=== PATIENT | male | born 1985 | race Two or more races ===

== ENCOUNTER 2024-07-25 13:46 | Observation (INO) | payer MEDICAID, SELFPAY ==
[2024-07-25] VITALS (10 sets, daily range): BP systolic 133–159; BP diastolic 90–109; PULSE 112–128; RESP 14–32; TEMP 36.6–38.1; O2SAT 95–99; BMI 30.7
--- NOTE | 2024-07-25 14:27 | EDNOTE_ITS ---
ED Psych RME/HPI General Chief Complaint: Psychiatric Symptoms Stated Complaint: PSYCHIATRIC ISSUES Time Seen by Provider: 07/25/24 14:04 Arrival date/time: 07/25/24 13:46 RME / HPI RME / HPI Narrative: Patient is a 38 year old male presenting to the ED BIBA and PPD on a gravely disabled hold. Patient was found standing in front of a store with no pants on, was not verbal at that time. Patient in ED is being nonverbal, does not make eye contact. Per EMS, patients mother reported a history of Bipolar and schizophrenia, states he hasn't slept in tow days and does become manic when he doesn't sleep well. Further history includes diabetes and hypertension. Related Data Previous Rx's ?Medication ?Instructions ?Recorded metformin 750 mg tablet,extended 750 mg PO QDAY 30 days #0 tabs 07/27/24 release 24 hr quetiapine 25 mg tablet 25 mg PO BID 30 days #60 tabs 07/27/24 Allergies Allergy/AdvReac Type Severity Reaction Status Date / Time No Known Allergies Allergy Verified 07/25/24 14:25 Review of Systems Review of Systems ROS Unobtainable: unobtainable due to mental status Past Medical History Past Medical History CARDIAC: Positive Cardiac Disorders, Angina, Hypercholesterolemia and Hyper tension GASTROINTESTINAL: Positive Gastrointestinal Disorders and Obesity ENDOCRINE: Positive Endocrine Disorders and Diabetes Mellitus Type 2 PSYCHO/SOCIAL: Positive Psychiatric Problems (PSYCHOSIS) and Bipolar Disorder Family History FAMILY HISTORY: Negative Family Psychiatric Problems, Family Respiratory Disorders, Family Cardiac Disorders, Family Gastrointestinal Problems, Family Cancer, Family Surgery or Family Anesthesia Reaction Surgical History SURGICAL: Positive Open Reduction Internal Fixation Social History SMOKING STATUS: Unknown if ever smoked SECOND HAND EXPOSURE: Yes SUBSTANCE USE: does not use ED Exam Narrative Physical exam: GEN. APPEARANCE: The patient is alert awake oriented X-3 in minimal distress, lying down, diaphoretic,? Patient has no eye contact during exam. lying in bed staring at ceiling with clenched fists and not answering questions. VITALS:? All vitals were reviewed and the pulse ox is 97% on room air which is normal according to my interpretation. EXTREMITIES: Nontender.? No edema.? No cyanosis.? Patient is able to move all 4 extremities well, with full ROM and good CSM. SKIN: diaphoretic MUSCULOSKELETAL: hyperreflexia, hypertonicity. No lubar or midline bony tenderness.? There is no CVA tenderness.? No paraspinal muscle spasm or tenderness. NEURO: Patient is not answering questions or making eye contact. PSYCHIATRIC: Patient does not make eye contact, does not talk or answer questions. Course Quality Measures none Orders Category Date Time Status 1799 Psychiatric Hold NOW Care 07/25/24 14:30 Ordered COVID-19 Screening Questionnaire NOW Care 07/25/24 20:12 Completed Tax Services Professional STAT Care 07/25/24 17:58 Completed Continuous Pulse Oximetry STAT Care 07/25/24 17:58 Completed Decision to Admit X1 Care 07/25/24 20:12 Completed EKG (ED ONLY) *Do not use* NOW Care 07/25/24 17:58 Completed In and Out Catheter X1PRN Care 07/25/24 17:58 Completed Insert IV NOW Care 07/25/24 17:58 Completed NPO STAT Care 07/25/24 17:58 Completed Strict Intake and Output Routine Care 07/25/24 17:[address] head/brain wo con Stat Exams 07/25/24 19:02 Completed EKG (ED Only) Stat Exams 07/25/24 17:58 Draft XR chest 1V portable Stat Exams 07/25/24 18:01 Completed Acetaminophen Stat Lab 07/25/24 15:00 Completed Alcohol, Blood Medical Stat Lab 07/25/24 15:00 Completed B-Type Natriuretic Peptide Stat Lab 07/25/24 18:00 Completed Basic Metabolic Panel Stat Lab 07/25/24 15:00 Completed Blood Culture (Lab) Stat Lab 07/25/24 18:31 Completed CBC Stat Lab 07/25/24 15:00 Completed CK [Creatine Kinase] Stat Lab 07/25/24 18:29 Completed Drug Screen,Urine Stat Lab 07/25/24 17:43 Completed LDH (Lactate Dehydrogenase) Stat Lab 07/25/24 18:29 Completed Lactate (Lactic Acid) Stat Lab 07/25/24 18:29 Completed Lipase Stat Lab 07/25/24 18:29 Completed Magnesium Stat Lab 07/25/24 18:29 Completed Partial Thromboplastin Time Stat Lab 07/25/24 15:00 Completed Phosphorous Stat Lab 07/25/24 18:29 Completed Procalcitonin Stat Lab 07/25/24 18:29 Completed Prothrombin Time with INR Stat Lab 07/25/24 15:00 Completed Salicylate Stat Lab 07/25/24 15:00 Completed Troponin I Stat Lab 07/25/24 18:29 Completed Urinalysis Stat Lab 07/25/24 17:43 Completed Urine Culture Stat Lab 07/27/24 00:22 Completed Diazepam Inj [Valium Inj] Med 07/25/24 17:53 Discontinued 10 mg IVP X1 ONE LORazepam [Ativan Inj] Med 07/25/24 18:14 Discontinued 2 mg IVP X1 ONE Magnesium Sulfate 2 GM Ivpb [Magnesium Sulfate Ivpb] Med 07/25/24 20:27 Discontinued 2 gm in 50 ml IV X1 Sodium Chloride 0.9% 1000 ml [Ns] 1,845 ml Med 07/25/24 17:57 Discontinued IV 1,845 mls/hr Vital Signs Vital signs: Vital Signs Temperature 98.3 F 07/25/24 14:05 Pulse Rate 128 H 07/25/24 14:05 Respiratory Rate 20 07/25/24 14:05 Blood Pressure 148/108 H 07/25/24 14:05 Pulse Oximetry (%) 97 07/25/24 14:05 Oxygen Delivery Method Room Air 07/25/24 14:05 Psych MDM Narrative MDM Narrative:: 1555 Sepsis alert initiated. Orders made at this time are congruent with ED Adult Sepsis Order List. Re-evaluation is to be completed. Patient data External records reviewed:: [facility] previous records and EMS form Clinical information provided by:: EMS Social determinants that could affect healthcare access:: mental health Patient has the following chronic illnesses:: Bipolar, schizophrenic, diabetes, hypertension How is presenting disease/condition affected by chronic disease/condition?: caused by Evaluation data The following diagnostics were reviewed and interpreted by me:: lab results and EKG tracing(s) ( Sinus Tach, rate 143, normal axis, no ectopy, no signs of acute acute ischemia) Lab and/or radiology exams considered but not ordered:: none Interpretation Summary: see above Medications / Prescriptions Medications or Prescriptions considered but not ordered:: none Medication administrations:: Medication Administration History Discontinued Medications Acetaminophen (Acetaminophen 325 Mg Tablet) 650 mg PO Q6H PRN PRN Reason: Fever >101.5 Stop: 08/24/24 20:57 Dextrose (Dextrose 50%-Water Inj 50 Ml Syringe) 25 ml IV Q15MIN PRN PRN Reason: BG 50-70 responsive npo pt Stop: 08/25/24 11:02 Dextrose (Dextrose 50%-Water Inj 50 Ml Syringe) 50 ml IV Q15MIN PRN PRN Reason: BG <50 OR BG <70 & pt unresponsive Stop: 08/25/24 11:02 Diazepam (Diazepam Inj 5 Mg/Ml Vial 2 Ml) 10 mg IVP X1 ONE Stop: 07/25/24 17:54 Last Admin: 07/25/24 18:10 Dose: 10 mg Documented By: EF Enoxaparin Sodium (Enoxaparin Sod Inj 40 Mg/0.4 Ml Syringe) 40 mg SC QDAY SILVERIO Stop: 08/09/24 08:59 Last Admin: 07/27/24 09:42 Dose: 40 mg Documented By: Admin: 07/26/24 08:54 Dose: 40 mg Documented By: MGD Folic Acid (Folic Acid 1 Mg Tablet) 1 mg PO BID SILVERIO Stop: 07/31/24 08:59 Last Admin: 07/27/24 09:42 Dose: 1 mg Documented By: Admin: 07/26/24 20:38 Dose: 1 mg Documented By: Admin: 07/26/24 08:53 Dose: 1 mg Documented By: MGD Glucagon (Glucagon Inj 1 Mg Vial) 1 mg IM Q15MIN PRN PRN Reason: BG <70, and no IV access Sodium Chloride (Ns) 1,845 mls @ 1,845 mls/hr 30 ml/kg infuse over 60 min (1845 ml) IV .Q1H ONE Stop: 07/25/24 18:56 Last Infusion: 07/25/24 19:48 Dose: Infused Documented By: Admin: 07/25/24 18:37 Dose: 1,845 mls/hr Documented By: EF Magnesium Sulfate (Magnesium Sulfate Ivpb) 2 gm in 50 mls @ 25 mls/hr IV X1 ONE Stop: 07/25/24 22:26 Last Infusion: 07/25/24 23:34 Dose: Infused Documented By: Admin: 07/25/24 21:19 Dose: 25 mls/hr Documented By: EE Sodium Chloride (Ns) 1,000 mls @ 75 mls/hr IV .[id number] SILVERIO Stop: 07/26/24 10:19 Last Infusion: 07/26/24 20:00 Dose: Infused Documented By: Admin: 07/25/24 21:21 Dose: 75 mls/hr Documented By: EE Potassium Chloride (Kcl Ivpb) 10 meq in 100 mls @ 100 mls/hr IV Q1H SILVERIO Stop: 07/26/24 11:56 Last Infusion: 07/26/24 20:00 Dose: Infused Documented By: Admin: 07/26/24 13:02 Dose: 100 mls/hr Documented By: Infusion: 07/26/24 13:02 Dose: Infused Documented By: Admin: 07/26/24 12:03 Dose: 100 mls/hr Documented By: Infusion: 07/26/24 10:56 Dose: Infused Documented By: Infusion: 07/26/24 10:55 Dose: 100 mls/hr Documented By: Admin: 07/26/24 09:56 Dose: 100 mls/hr Documented By: Infusion: 07/26/24 09:54 Dose: Infused Documented By: Admin: 07/26/24 08:54 Dose: 100 mls/hr Documented By: MGD Insulin Human Lispro (Insulin Lispro (Admelog) 1 Unit/0.01 Ml Unit) 0 unit SC ACHS SILVERIO; Protocol Stop: 08/25/24 11:29 Last Admin: 07/27/24 11:39 Dose: Not Given Documented By: BV Non-Admin Reason: Per Protocol Admin: 07/27/24 07:13 Dose: Not Given Documented By: BV Non-Admin Reason: Per Protocol Admin: 07/26/24 20:38 Dose: Not Given Documented By: WO Non-Admin Reason: Per Protocol Admin: 07/26/24 17:18 Dose: Not Given Documented By: MGD Non-Admin Reason: Per Protocol Admin: 07/26/24 12:30 Dose: Not Given Documented By: MGD Non-Admin Reason: Per Protocol Lorazepam (Lorazepam 2 Mg/Ml Vial) 2 mg IVP X1 ONE Stop: 07/25/24 18:15 Last Admin: 07/25/24 18:50 Dose: Not Given Documented By: EF Non-Admin Reason: Cancelled by Provider Lorazepam (Lorazepam 2 Mg/Ml Vial) 2 mg IVP X1 ONE Stop: 07/25/24 23:07 Last Admin: 07/25/24 23:35 Dose: 2 mg Documented By: EE Lorazepam (Lorazepam 0.5 Mg Tablet) 0.5 mg PO Q4HR PRN PRN Reason: CIWA Score 2-6 Stop: 07/31/24 07:49 Lorazepam (Lorazepam 0.5 Mg Tablet) 1 mg PO Q4HR PRN PRN Reason: CIWA SCORE 7-11 Stop: 07/31/24 07:49 Lorazepam (Lorazepam 0.5 Mg Tablet) 2 mg PO Q4HR PRN PRN Reason: CIWA SCORE 12-15 Stop: 07/31/24 07:49 Lorazepam (Lorazepam 2 Mg/Ml Vial) 1 mg IV Q2HR PRN PRN Reason: CIWA SCORE 16-19 Stop: 07/31/24 07:49 Lorazepam (Lorazepam 2 Mg/Ml Vial) 2 mg IV Q2HR PRN PRN Reason: CIWA SCORE 20-25 Stop: 07/31/24 07:49 Lorazepam (Lorazepam 2 Mg/Ml Vial) 2 mg IVP X1 PRN PRN Reason: Breakthrough Agitation Potassium Chloride (Potassium Chloride 20 Meq Tabcr) 20 meq PO X1 ONE Stop: 07/27/24 07:25 Last Admin: 07/27/24 09:42 Dose: 20 meq Documented By: ZOHAIB Quetiapine Fumarate (Quetiapine Fumarate 25 Mg Tablet) 25 mg PO HS SILVERIO Stop: 08/25/24 20:59 Last Admin: 07/26/24 20:38 Dose: 25 mg Documented By: WO Quetiapine Fumarate (Quetiapine Fumarate 25 Mg Tablet) 25 mg PO BID SILVERIO Stop: 08/26/24 08:59 Last Admin: 07/27/24 09:42 Dose: 25 mg Documented By: ZOHAIB Thiamine HCl (Thiamine Inj 100 Mg/Ml Vial 2 Ml) 100 mg IM X1 ONE Stop: 07/26/24 08:16 Last Admin: 07/26/24 09:56 Dose: 100 mg Documented By: MGVilma none Consultations Consultation(s) initiated? (list below): No Diagnosis Psych Differential Diagnosis: other (acute psychosis, catatonia, cocaine intoxication, methamphetamine intoxication ) Most likely diagnosis given after review of the tests above:: acute psychosis. Admission Indicated Admission indicated?: not indicated Admission Request Was there a request for admission?: No Disposition Plan Disposition Plan: other (specify) (signed out to next provider pending evaluation) Critical Care Time Critical Care Time Total Critical Care Time (min.): 45 Attestation: The high probability of sudden, clinically significant deterioration in the patient?s condition required the highest level of my preparedness to intervene urgently. ? The services I provided to this patient were to treat and/or prevent clinically significant deterioration. Services included the following: chart data review, reviewing nursing notes and/or old charts, documentation time, mgmt consultant collaboration regarding findings and treatment options, medication orders and management, direct patient care, vital sign assessments and ordering, interpreting and reviewing diagnostic studies and lab tests. ? Aggregate critical care time includes only time during which I was engaged in work directly related to the patient?s care, as described above, whether at bedside or elsewhere in the Emergency Department. It did not include time spent performing other reported procedures or the services of residents, students, nurses or physician assistants. Discharge Plan Plan Patient Disposition: Other Care w/in Hosp (SDC/RUMA) Problem List Clinical Impression: Acute psychosis
--- NOTE | 2024-07-25 14:34 | PC.NURSE ---
UNABLE TO DO COLUMBIA SCALE DUE TO PT NOT WANTING TO ANSWER QUESTIONS
[2024-07-25 15:12] LABS: Basophils # (Auto) 0.1 Thou/mm3 (0.0-0.2); Basophils % (Auto) 1 % (0-2.5); Eosinophils # (Auto) 0.1 Thou/mm3 (0.0-0.5); Eosinophils % (Auto) 0 % (0-10); Hemoglobin 16.7 g/dL (13.5-16.0); Immature Granulocytes % (Auto) 0 % (0-0); Immature Granulocytes Auto 0.05 Thou/mm3 (0.00-0.00); Lymphocytes # (Auto) 1.5 Thou/mm3 (1.0-4.8); Lymphocytes % (Auto) 11 % (10-50); Mean Corpuscular HGB Conc 34.8 g/dl (31.0-37.0); Mean Corpuscular Hemoglobin 28.3 pg (25.0-35.0); Mean Corpuscular Volume 81 fL (80-100); Monocytes # (Auto) 0.9 Thou/mm3 (0.0-0.8); Monocytes % (Auto) 7 % (0-12); Neutrophils # (Auto) 10.3 Thou/mm3 (1.8-7.7); Neutrophils % (Auto) 80 % (37-80); Platelet Count 176 Thou/mm3 (140-440); RDW Standard Deviation 40.9 fL (35.1-43.9); Red Blood Count 5.91 Miln/mm3 (4.50-5.90); White Blood Count 12.9 Thou/mm3 (3.8-10.6)
[2024-07-25 15:13] LABS: Nucleated Red Blood Cell % 0 /100 WBC (0)
[2024-07-25 15:30] LABS: Acetaminophen < 2.0 mcg/mL (10.0-20.0); Alcohol, Blood Medical < 3.0 mg/dL (0-10.0); Anion Gap 13 (7-16); BUN/Creatinine Ratio 14 Ratio (12-20); Blood Urea Nitrogen 18 mg/dL (9-23); Calcium 9.8 mg/dL (8.3-10.6); Carbon Dioxide 22.7 mMol/L (20.0-31.0); Chloride 96 mMol/L (98-107); Creatinine (Component) 1.3 mg/dL (0.6-1.3); Estimated Creatinine Clearance 76.8 mL/min (>60); Glucose 146 mg/dL (74-106); Osmolality,Calculated 269 (275-295); Potassium 3.9 mMol/L (3.4-5.1); Salicylate < 3.0 mg/dL; Sodium 132 mMol/L (136-145); eGFR > 60 See Note
--- NOTE | 2024-07-25 17:40 | PC.NURSE ---
pt noted to be diaphoretic, tachy and high bp. dr araiza called to bedside. pt still not talking. new orders received at this time
--- NOTE | 2024-07-25 17:58 | EKG_ITS ---
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
--- NOTE | 2024-07-25 18:01 | XR_ITS ---
Examination: AP chest single view Technique one AP portable semiupright chest single view Exam date and time: July 25, 2024 1804 hrs. Comparison February 06, 2023 Indications: Shortness of breath coughing fever beginning 2 days ago. Findings: Mild prominence left ventricle No lobar pneumonia or pulmonary edema The osseous structures are intact Impression: No lobar pneumonia or pulmonary edema
[2024-07-25] MEDS: DIAZEPAM INJ 5 MG/ML VIAL 2 ML 10 MG IVP (18:10)
[2024-07-25 18:15] LABS: Collection Type, Urine Clean Catch; RBC,Urine 0 /hpf (0-3); WBC,Urine 0 /hpf (0-5)
[2024-07-25 18:24] LABS: INR 1.1 (0.9-1.3); Partial Thromboplastin Time 26.4 Seconds (22.0-36.0); Prothrombin Time 12.4 Seconds (9.0-12.2)
[2024-07-25 18:26] LABS: Amphetamine/Methamp Scrn,U Negative (Negative); Barbiturate Screen,Urine Negative (Negative); Benzodiazepines Screen,Urine Negative (Negative); Benzoylecgonine Screen, Ur Negative (Negative); Fentanyl Screen,Urine Negative (Negative); Opiate Screen,Urine Negative (Negative); THC Screen,Urine Positive (Negative)
[2024-07-25 18:29] LABS: Bilirubin,Urine 2+ (Negative); Blood,Urine Negative (Negative); Clarity,Urine Turbid (Clear/Hazy); Color,Urine Drk-Yellow (Lt Yel-Yel); Glucose, Urine Trace (Negative); Hyaline Casts,Urine 1 /hpf (0-1); Ketones,Urine 1+ (Negative); Leukocyte Esterase,Urine Negative (Negative); Nitrite,Urine Negative (Negative); PH,Urine 5.5 (5.0-7.0); Protein,Urine 2+ (Neg - Trace); Specific Gravity,Urine 1.032 (1.001-1.035); Squamous Epithelial Cell,Urine < 1 /hpf (0-5)
--- NOTE | 2024-07-25 18:32 | PD.EDADDENDU ---
Emergency Room Addendum <Yohana Gomez - Last Filed: 07/25/24 20:45> Addendum Narrative: 1800: Care assumed from Dr. Yip, the previous shift emergency physician. Past medical, surgical, social and family history reviewed. Vitals and home medications reviewed. I will assume the care of the patient at this time, continue medical evaluation for possible serotonin syndrome, with psychiatric placement pending. The patient was placed in ED observation care at 07/25/2024 at 1800 hours. The patient was placed in ED observation care because of undifferentiated decompensated behavioral health evaluation, no behavioral health bed available. The patients past medical history, social history, and family history were reviewed. The plan of care will include serial examinations. Please refer to the emergency department record for history and examination.? While in ED observation the patient will have access to water, food, and personal hygiene. If the patient takes home medication(s), they will be continued in ED observation. Physical exam by me shows patient under no acute distress at this time. Not diaphoretic at this time. Patient resting in no acute distress. Heart rate is 111. No tremor at this time. Patient is looking around the room. No stiff neck. Sepsis 1803: Sepsis alert initiated. Orders made at this time are congruent with ED Adult Sepsis Order List. Re-evaluation is to be completed. 1836: Fluids started. 1909: Sepsis reassessment performed consisting of lab review, vitals, physical exam including auscultation of heart, lungs, and visual evaluation of capillary refills, mucosal membranes and extremities. CRITICAL CARE: TIME: 30 minutes for sepsis. The high probability of sudden, clinically significant deterioration in the patient?s condition required the highest level of my preparedness to intervene urgently. The services I provided to this patient were to treat and/or prevent clinically significant deterioration. Services included the following: chart data review, reviewing nursing notes and/or old charts, documentation time, call center support consultant collaboration regarding findings and treatment options, medication orders and management, direct patient care, vital sign assessments and ordering, interpreting and reviewing diagnostic studies and lab tests. Aggregate critical care time includes only time during which I was engaged in work directly related to the patient?s care, as described above, whether at bedside or elsewhere in the Emergency Department. It did not include time spent performing other reported procedures or the services of residents, students, nurses or physician assistants. Labs:White count is 12, hemoglobin hematocrit is 16/48, platelets 176. INR is 1.1 with normal PTT. Sodium 132, potassium 3.9. Normal anion gap at 13. BUN/creatinine are normal. Urine shows ketones without bacteria or UTI. Has marijuana on drug screen only alcohol level is negative. 2034: Discussed test HPI, PMHx, lab, radiology results and/or management with hospitalist. Will admit for further evaluation and management. Accepts patient for admission. ED observation care ended after the patient got admitted to the hospital on 07/25/2024 at 2035 hours. <Kenzie Boothe MD - Last Filed: 07/25/24 18:51> Addendum Narrative: 1800: Care assumed from Dr. Yip, the previous shift emergency physician. Past medical, surgical, social and family history reviewed. Vitals and home medications reviewed. I will assume the care of the patient at this time, continue medical evaluation for possible serotonin syndrome, with psychiatric placement pending. The patient was placed in ED observation care at 07/25/2024 at 1800 hours. The patient was placed in ED observation care because of undifferentiated decompensated behavioral health evaluation, no behavioral health bed available. The patients past medical history, social history, and family history were reviewed. The plan of care will include serial examinations. Please refer to the emergency department record for history and examination.? While in ED observation the patient will have access to water, food, and personal hygiene. If the patient takes home medication(s), they will be continued in ED observation. Physical exam by me shows patient under no acute distress at this time. Not diaphoretic at this time. Patient resting in no acute distress. Heart rate is 111. No tremor at this time. Patient is looking around the room. No stiff neck. Sepsis 1803: Sepsis alert initiated. Orders made at this time are congruent with ED Adult Sepsis Order List. Re-evaluation is to be completed. xx: Fluids started. xx: Sepsis reassessment performed consisting of lab review, vitals, physical exam including auscultation of heart, lungs, and visual evaluation of capillary refills, mucosal membranes and extremities. CRITICAL CARE: TIME: 30 minutes for sepsis. The high probability of sudden, clinically significant deterioration in the patient?s condition required the highest level of my preparedness to intervene urgently. The services I provided to this patient were to treat and/or prevent clinically significant deterioration. Services included the following: chart data review, reviewing nursing notes and/or old charts, documentation time, call center support consultant collaboration regarding findings and treatment options, medication orders and management, direct patient care, vital sign assessments and ordering, interpreting and reviewing diagnostic studies and lab tests. Aggregate critical care time includes only time during which I was engaged in work directly related to the patient?s care, as described above, whether at bedside or elsewhere in the Emergency Department. It did not include time spent performing other reported procedures or the services of residents, students, nurses or physician assistants. Labs:White count is 12, hemoglobin hematocrit is 16/48, platelets 176. INR is 1.1 with normal PTT. Sodium 132, potassium 3.9. Normal anion gap at 13. BUN/creatinine are normal. Urine shows ketones without bacteria or UTI. Has marijuana on drug screen only alcohol level is negative.
[2024-07-25] MEDS: SODIUM CHLORIDE 0.9% 1000 ML 1,845 ML 1845 ML IV (18:37)
--- NOTE | 2024-07-25 18:44 | PC.NURSE ---
pt now talking to staff. pt states that he feels better. v/s updated. sitter at bedside.
[2024-07-25 18:59] LABS: Lactate (Lactic Acid) 1.8 mMol/L (0.4-2.0)
--- NOTE | 2024-07-25 19:02 | XR_ITS ---
Examination: CT brain head without contrast. 2-D sagittal coronal reconstructions Date and time of exam:July 25, 2024 1912 hrs. Indications: Altered mental status today CTDI: vol (mGy):56.8 DLP: (mGycm):1259 Technique: Multiple CT axial sections of the brain have been obtained, 5 mm slice thickness. Contrast has not been administered. 2-D sagittal, coronal reconstructions have been obtained Low dose protocols were performed. One or more of the following dose reduction techniques were used; automated exposure control, adjustment of the mA and/or KV according to patient size, use of iterative reconstruction technique. Findings: No significant ventricular enlargement. Intra-axial or extra-axial hemorrhage density is not seen. No mass effect or midline shift Basal cisterns are not remarkable. Fourth ventricle is midline. Cranial vault intact. Impression: Negative for acute hemorrhage, mass effect or midline shift Advise clinical correlation follow-up accordingly
[2024-07-25 19:37] LABS: Creatine Kinase 157 U/L (34-171); LDH (Lactate Dehydrogenase) 172 U/L (120-246); Lipase 30 U/L (12-53); Magnesium 1.5 mg/dL (1.6-2.6); Phosphorous 3.6 mg/dL (2.4-5.1); Procalcitonin 0.24 ng/ml (0.0-0.49); Troponin I < 0.020 ng/mL (0.0-0.045)
[2024-07-25 19:38] LABS: B-Type Natriuretic Peptide < 20 pg/mL (0-100)
--- NOTE | 2024-07-25 20:00 | PC.NURSE ---
Attempted Czech scale, patient not responding. Only intermittently answers yes or no questions s
[2024-07-25] MEDS: Magnesium Sulfate 2 GM Ivpb 2 GM/50 ML BAG IV (21:19)
[2024-07-25] MEDS: SODIUM CHLORIDE 0.9% 1000 ML 1,000 ML 75 ML IV (21:21)
--- NOTE | 2024-07-25 22:00 | PD.RESHP ---
Documentation for date of: 07/25/24 HPI History of Present Illness History of present illness: The patient is a 38-year-old male with a past medical history of alcohol use, hypertension, diabetes and reported bipolar disorder and schizophrenia who was brought to the ED [facility] on 07/25/2024 after being found standing in front of a store and being nonverbal. There is no source by history. Taking except chart review. Per ED notes, EMS had reported the patient's mother mentioned a history of bipolar disorder and schizophrenia and stated that he had not slept in 2 days and reported the patient's becomes manic when he is sleep deprived. No further history can be obtained. ED course: In the ED, patient was alert but not oriented and nonverbal, made no eye contact. Additionally, he was tachycardic and spiked a fever 100.6 and sepsis alert was called. Labs showed WBC 12.9 Hgb 16.7 PLT 176 NA 132 CL 96K 3.9 BUN 18 CR 1.3 glucose (mg 1.5). UA had 2+ protein 1+ ketones and U-Tox was positive for marijuana. Chest x-ray was done which was negative as well as head CT. COVID test was also done which was negative the patient was placed on a 5150 hold. He is being admitted for observation of catatonia and SIRS. Review of Systems Review of Systems ROS Unobtainable: unobtainable due to medical condition Exam Vital Signs Temp Pulse Resp BP Pulse Ox O2 Del Method 97.8 F 112 H 14 157/104 H 96 Room Air 07/25/24 19:44 07/25/24 19:44 07/25/24 19:44 07/25/24 19:44 07/25/24 19:44 07/25/24 19:44 Narrative Exam GENERAL: Awake, nonverbal, makes no eye contact. NEURO: Upper extremities held in flexed position at the elbows but can be passively repositioned, reflexes normal. HEENT: Eyes open, symmetrical, & clear. CARDIO: No chest pain on palpation. Heart RRR, no obvious murmurs. PULM: No noted coughing/dyspnea. Lungs CTA B/L. GI: Abdomen soft, nondistended, no pain on palpation. BSx4. URO/ETHNOGRAPHER:: No further abnormalities noted. SKIN/MSK/EXT: No wounds/rashes/edema/amputations, no pain on palpation. Pedal pulses present B/L. Results: Labs 07/25/24 15:00 07/25/24 15:00 Labs: Short CBC 07/25/24 Range/Units 15:00 WBC 12.9 H (3.8-10.6) Thou/mm3 Hgb 16.7 H (13.5-16.0) g/dL Hct 48.0 (41.0-53.0) % Plt Count 176 (140-440) Thou/mm3 BMP 07/25/24 15:00 Sodium 132 L Potassium 3.9 Chloride 96 L Carbon Dioxide 22.7 BUN 18 Creatinine 1.3 Glucose 146 H Calcium 9.8 Cardiac Enzymes 07/25/24 Range/Units 18:29 Total Creatine Kinase 157 (34-171) U/L Troponin I < 0.020 (0.0-0.045) ng/mL Urine 07/25/24 Range/Units 17:43 Urine Color Drk-Yellow A (Lt Yel-Yel) Urine Clarity Turbid A (Clear/Hazy) Urine pH 5.5 (5.0-7.0) Ur Specific [place] 1.032 (1.001-1.035) Urine Protein 2+ A (Neg - Trace) Urine Glucose (UA) Trace (Negative) Quality Measures Quality Measures none Medications Home Medications and Allergies Home Medications ?Medication ?Instructions ?Recorded ?Confirmed ?Type gabapentin 400 mg capsule 400 mg PO TID 06/12/22 02/07/23 History sertraline 50 mg tablet (Zoloft) 50 mg PO QDAY 06/12/22 02/07/23 History quetiapine 300 mg tablet 300 mg PO HS 07/02/22 02/07/23 History metformin 750 mg tablet,extended 750 mg PO QDAY 02/07/23 02/07/23 History release 24 hr Allergies Allergy/AdvReac Type Severity Reaction Status Date / Time No Known Allergies Allergy Verified 07/25/24 14:25 Visit Medications Acetaminophen (Acetaminophen 325 Mg Tablet) 650 mg PO Q6H PRN PRN Reason: Fever >101.5 Stop: 08/24/24 20:57 Enoxaparin Sodium (Enoxaparin Sod Inj 40 Mg/0.4 Ml Syringe) 40 mg SC QDAY SILVERIO Stop: 08/09/24 08:59 Magnesium Sulfate (Magnesium Sulfate Ivpb) 2 gm in 50 mls @ 25 mls/hr IV X1 ONE Stop: 07/25/24 22:26 Last Admin: 07/25/24 21:19 Dose: 25 mls/hr Sodium Chloride (Ns) 1,000 mls @ 75 mls/hr IV .[id number] SILVERIO Stop: 07/26/24 10:19 Last Admin: 07/25/24 21:21 Dose: 75 mls/hr Discontinued Medications Diazepam (Diazepam Inj 5 Mg/Ml Vial 2 Ml) 10 mg IVP X1 ONE Stop: 07/25/24 17:54 Last Admin: 07/25/24 18:10 Dose: 10 mg Sodium Chloride (Ns) 1,845 mls @ 1,845 mls/hr 30 ml/kg infuse over 60 min (1845 ml) IV .Q1H ONE Stop: 07/25/24 18:56 Last Infusion: 07/25/24 19:48 Dose: Infused Lorazepam (Lorazepam 2 Mg/Ml Vial) 2 mg IVP X1 ONE Stop: 07/25/24 18:15 Last Admin: 07/25/24 18:50 Dose: Not Given Assessment & Plan Assessment Summary: The patient is a 38-year-old male with past medical history of alcohol use, hypertension, diabetes and reported bipolar disorder and schizophrenia who was Biba to the ED on 08/04/2024. He has been admitted for observation of catatonia and SIRS #Catatonia #History of bipolar disorder #History of schizophrenia Per EMS, the patient was found standing in front of a store and said to be nonverbal. Mother reported that the patient has a history of bipolar disorder and schizophrenia. On examination, patient has upper extremities flexed at the elbow joint but is not rigid however is persistently nonverbal and had a temperature spike of 100.6 while in the ED. He was also tachycardic with a heart rate of 120s and EKG showed sinus tachycardia. While med refill is not being seen in the EMR, pending reconciliation shows that the patient might be on quetiapine and sertraline. Plan: -Admit to telemetry obs -Continue to monitor clinical status -Received diazepam in the ED, consider benzos -Complete med recs #SIRS Presentation to the ED, patient was noted to be tachycardic with heart rate in the 120s and EKG also showed sinus tachycardia. He also spiked a fever of 100.6 in the ED. Labs showed a WBC of 12.9 with normal lactate. However, he was negative for UTI chest x-ray is negative for pneumonia or inflammatory process. Plan: -Continue to monitor CBC -Blood culture #Hypomagnesemia Admitting magnesium-1.5 Plan: -Replete magnesium #History of hypertension Patient has a history of hypertension and per chart review is on lisinopril 40 mg daily. Blood pressure on admission in the 140s. Due to patient's clinical status, is unable to take p.o. meds now. Plan: -IV hydralazine 10 mg as needed for SBP> 160 until swallow eval passed her clinical condition improves #History of diabetes The patient has a history of diabetes and per chart review is on metformin 750 mg daily. Last A1c done in 2021 was 6.1. Plan: -HbA1c -Monitor blood glucose closely Health maintenance: Dispo: Tele obs Diet: NPO until swallow eval passed DVT: Lovenox Lines: Peripheral Med Rec: Pending, f/u PT: Code: Full Case was discussed with attending physician, Dr Chito García MD PGY-1 Attending Provider Attestation/Addendum Pt was evaluated and plan formulated together with the housestaff team. I have reviewed the residents note above and agree with most of its content. Please refer to the residents note for additional details. OBS overnight.
[2024-07-25] MEDS: LORazepam 2 MG/ML VIAL IVP (23:35)
[2024-07-26] VITALS (11 sets, daily range): BP systolic 127–148; BP diastolic 89–105; PULSE 89–109; RESP 16–21; TEMP 36.1–36.9; O2SAT 94–98; BMI 42.0
--- NOTE | 2024-07-26 00:20 | PC.NURSE ---
REPORT RECEIVED FROM [facility].
--- NOTE | 2024-07-26 00:30 | PC.NURSE ---
PT ADMITTED TO RM 273 FROM ED WITH MONITOR ,ON ROOM AIR. PT AWAKE, ALERT TO SELF AND PLACE BUT NO EYE CONTACT. PT DENIES PAIN, NO ACUTE DISTRESS. PT FALLS ASLEEP AND AT TIMES WILL NOT ANSWER QUESTIONS. . PT UPDATED WITH PLAN OF CARE, EXPLAINED NEED TO REMOVE ITEMS FROM HIS FROM FOR SUICIDE RISK BUT NO RESPOND FROM PT. 1:1 PUBLIC HEALTH PROFESSOR SITTER AT BEDSIDE.
[2024-07-26 05:19] LABS: Basophils # (Auto) 0.1 Thou/mm3 (0.0-0.2); Basophils % (Auto) 1 % (0-2.5); Eosinophils # (Auto) 0.2 Thou/mm3 (0.0-0.5); Eosinophils % (Auto) 2 % (0-10); Hemoglobin 14.2 g/dL (13.5-16.0); Immature Granulocytes % (Auto) 0 % (0-0); Immature Granulocytes Auto 0.03 Thou/mm3 (0.00-0.00); Lymphocytes # (Auto) 1.9 Thou/mm3 (1.0-4.8); Lymphocytes % (Auto) 20 % (10-50); Mean Corpuscular HGB Conc 33.8 g/dl (31.0-37.0); Mean Corpuscular Hemoglobin 28.1 pg (25.0-35.0); Mean Corpuscular Volume 83 fL (80-100); Monocytes % (Auto) 11 % (0-12); Neutrophils # (Auto) 6.1 Thou/mm3 (1.8-7.7); Neutrophils % (Auto) 66 % (37-80); Nucleated Red Blood Cell % 0 /100 WBC (0); Platelet Count 133 Thou/mm3 (140-440); RDW Standard Deviation 42.5 fL (35.1-43.9); Red Blood Count 5.06 Miln/mm3 (4.50-5.90); White Blood Count 9.3 Thou/mm3 (3.8-10.6)
[2024-07-26 05:34] LABS: Glucose Estimated Average 146 mg/dL (80-131); Hemoglobin A1C 6.7 % Hgb (4.8-6.0)
[2024-07-26 06:09] LABS: Anion Gap 10 (7-16); BUN/Creatinine Ratio 24 Ratio (12-20); Blood Urea Nitrogen 17 mg/dL (9-23); Calcium 8.7 mg/dL (8.3-10.6); Carbon Dioxide 25.2 mMol/L (20.0-31.0); Chloride 103 mMol/L (98-107); Creatinine (Component) 0.7 mg/dL (0.6-1.3); Estimated Creatinine Clearance 161.9 mL/min (>60); Glucose 113 mg/dL (74-106); Osmolality,Calculated 278 (275-295); Phosphorous 3.7 mg/dL (2.4-5.1); Potassium 3.3 mMol/L (3.4-5.1); Sodium 138 mMol/L (136-145); eGFR > 60 See Note
--- NOTE | 2024-07-26 07:21 | PC.CC ---
Pt Bird Rahman is a 38 yr old male, brought to ED on 07/25/24 on 5150 hold for GD. Hold placed by PPD. Pt admitted to hospitalist services. At this time pt is pending medical clearance for evaluation.
--- NOTE | 2024-07-26 07:53 | ESPR_ITS ---
<Statement entered by Earle Tavares MD - 07/26/24 15:36> Patient was seen and examined at the bedside. Patient was AO x 2 and reported that he feels better now. He was restarted on quetiapine 25 mg at bedtime as patient stopped his medications by his own since discharge from the hospital past couple of months. Patient is suffering from bipolar and schizophrenic disorder and was on quetiapine and Seroquel however he stopped his medications by his own. He will be continued on fluid therapy, benzodiazepines and CIWA protocol for management of his symptoms of catatonia and will likely get evaluated by crisis evaluation tomorrow once he is medically stable for discharge. Electrolytes were repleted. His catatonia has markedly improved and symptoms have been resolving. All labs and orders were reviewed. I saw and examined the patient, and I agree with current management stated by Dr Joel MD,PGY1. Plan of care was discussed with the attending physician and resident physician. Disclaimer: Despite multiple revisions, due to the dictation software being used, the document bellow may not be free of grammatical errors including phonetic/typographic errors. However, this does not deter from our commitment to providing health care in the patient's best interest in mind. Dr. Anusha MD, PGY 2 Documentation for date of: 07/26/24 Subjective Subjective Interval history: Patient was seen and examined at bedside this AM. No acute exents overnight. Patient tolerating diet, adequate urine output and mentation is at baseline. This a.m. patient is alert and oriented x 4 and no longer has any catatonic posturing. He reports that he feels well but tired. Patient had a prior history of alcohol abuse and was started on CIWA protocol. Alcohol levels were ordered Patient states that he follows up with his PCP who he last saw 2 months ago and psychiatrist David Lr in [place]. Previously he was on quetiapine 300 Mg p.o. at bedtime and sertraline 50 Mg p.o. daily. However patient stopped these medications on his own around August this year as he stated he no longer heard voices. Patient states that as of recent weeks he has begun to hear voices again. Will restart patient on small dose of quetiapine 25 Mg p.o. at bedtime and monitor overnight. Of note patient lives with his dad. Exam Vital Signs Temp Pulse Resp BP Pulse Ox O2 Del Method 98.4 F 103 H 20 131/92 H 98 Room Air 07/26/24 03:59 07/26/24 04:00 07/26/24 03:59 07/26/24 03:59 07/26/24 03:59 07/26/24 03:59 Narrative Exam Constitutional Alert, oriented x 3 and comfortable. Young male HEENT Vision grossly intact. Patent nares. Trachea midline Respiratory Chest normal on inspection and clear auscultation bilaterally Cardiovascular S1 and S2 audible, RRR. No murmurs carotid bruit. No gross JVD. Abdominal Soft and non tender to palpation in all quadrants. BS + Genitourinary No bladder tenderness, no flank pain. Normal to palpation Musculoskeletal Extremities tone within normal limits. No LE edema. Neurological CN II - XII grossly intact. Extremity motor and sensation grossly intact. Skin Warm, dry and intact. No apparent lesions. Psychiatric Patient has good affect, is cooperative Objective Labs 07/27/24 05:33 07/27/24 05:33 Labs: Laboratory Results - last 24 hr 07/25/24 07/25/24 07/25/24 15:00 17:43 18:00 WBC 12.9 H RBC 5.91 H Hgb 16.7 H Hct 48.0 MCV 81 MCH 28.3 MCHC 34.8 RDW Std Deviation 40.9 Plt Count 176 Neut % (Auto) 80 Lymph % (Auto) 11 [place] % (Auto) 7 Eos % (Auto) 0 Baso % (Auto) 1 Neut # (Auto) 10.3 H Lymph # (Auto) 1.5 [place] # (Auto) 0.9 H Eos # (Auto) 0.1 Baso # (Auto) 0.1 Immature Gran # (Auto) 0.05 H Absolute Nucleated RBC 0.00 Immature Gran % 0 Nucleated RBC % 0 PT 12.4 H INR 1.1 APTT 26.4 Sodium 132 L Potassium 3.9 Chloride 96 L Carbon Dioxide 22.7 Anion Gap 13 BUN 18 Creatinine 1.3 Estim Creat Clear Calc 76.8 eGFR > 60 BUN/Creatinine Ratio [address] Glu mg/dL Hemoglobin A1c Calculated Osmolality 269 L Lactic Acid Calcium 9.8 Phosphorus Magnesium Lactate Dehydrogenase Total Creatine Kinase Troponin I B-Natriuretic Peptide < 20 Lipase Procalcitonin Ur Collection Type Clean Catch Urine Color Drk-Yellow A Urine Clarity Turbid A Urine pH 5.5 Ur Specific [place] 1.032 Urine Protein 2+ A Urine Glucose (UA) Trace Urine Ketones 1+ A Urine Blood Negative Urine Nitrite Negative Urine Bilirubin 2+ A Urine Urobilinogen (Auto) 6.0 Ur Leukocyte Esterase Negative Urine RBC 0 Urine WBC 0 Ur Squamous Epith Cells < 1 Urine Bacteria None Hyaline Casts 1 Salicylates < 3.0 Urine Opiates Screen Negative Urine Fentanyl Screen Negative Acetaminophen < 2.0 L Ur Barbiturates Screen Negative U Amphetamin/Meth Scrn Negative U Benzodiazepines Scrn Negative U Cocaine Metab Screen Negative U Marijuana (THC) Screen Positive A Ethyl Alcohol < 3.0 07/25/24 07/26/24 18:29 04:25 WBC 9.3 RBC 5.06 Hgb 14.2 D Hct 42.0 MCV 83 MCH 28.1 MCHC 33.8 RDW Std Deviation 42.5 Plt Count 133 L D Neut % (Auto) 66 Lymph % (Auto) 20 [place] % (Auto) 11 Eos % (Auto) 2 Baso % (Auto) 1 Neut # (Auto) 6.1 Lymph # (Auto) 1.9 [place] # (Auto) 1.0 H Eos # (Auto) 0.2 Baso # (Auto) 0.1 Immature Gran # (Auto) 0.03 H Absolute Nucleated RBC 0.00 Immature Gran % 0 Nucleated RBC % 0 PT INR APTT Sodium 138 Potassium 3.3 L D Chloride 103 Carbon Dioxide 25.2 Anion Gap 10 BUN 17 Creatinine 0.7 D Estim Creat Clear Calc 161.9 eGFR > 60 BUN/Creatinine Ratio 24 H Glucose [address] Glu mg/dL 146 H Hemoglobin A1c 6.7 H Calculated Osmolality 278 Lactic Acid 1.8 Calcium 8.7 Phosphorus 3.6 3.7 Magnesium 1.5 L 2.0 Lactate Dehydrogenase 172 Total Creatine Kinase 157 Troponin I < 0.020 B-Natriuretic Peptide Lipase 30 Procalcitonin 0.24 Ur Collection Type Urine Color Urine Clarity Urine pH Ur Specific [place] Urine Protein Urine Glucose (UA) Urine Ketones Urine Blood Urine Nitrite Urine Bilirubin Urine Urobilinogen (Auto) Ur Leukocyte Esterase Urine RBC Urine WBC Ur Squamous Epith Cells Urine Bacteria Hyaline Casts Salicylates Urine Opiates Screen Urine Fentanyl Screen Acetaminophen Ur Barbiturates Screen U Amphetamin/Meth Scrn U Benzodiazepines Scrn U Cocaine Metab Screen U Marijuana (THC) Screen Ethyl Alcohol Quality Measures Quality Measures none Assessment & Plan Assessment Current Active Medications: Generic Name Dose Route Start Last Admin Trade Name Ace PRN Reason Stop Dose Admin Acetaminophen 650 mg 07/25/24 20:58 Acetaminophen 325 Mg Tablet PO 08/24/24 20:57 Q6H PRN Fever >101.5 Enoxaparin Sodium 40 mg 07/26/24 09:00 Enoxaparin Sod Inj 40 Mg/0.4 Ml Syringe SC 08/09/24 08:59 QDAY SILVERIO Sodium Chloride 1,000 mls @ 75 mls/hr 07/25/24 21:00 07/25/24 21:21 Ns IV 07/26/24 10:19 75 mls/hr .[id number] SILVERIO Administration Plan Summary: The patient is a 38-year-old male with past medical history of alcohol use, hypertension, diabetes and reported bipolar disorder and schizophrenia who was Biba to the ED on 08/04/2024. He has been admitted for observation of catatonia and SIRS #Catatonia?resolved #Bipolar disorder # Schizophrenia #History of alcohol abuse Per EMS, the patient was found standing in front of a store and said to be nonverbal. Mother reported that the patient has a history of bipolar disorder and schizophrenia. On examination, patient has upper extremities flexed at the elbow joint but is not rigid however is persistently nonverbal and had a temperature spike of 100.6 while in the ED. He was also tachycardic with a heart rate of 120s and EKG showed sinus tachycardia. While med refill is not being seen in the EMR, pending reconciliation shows that the patient might be on quetiapine and sertraline. This a.m. patient is alert and oriented x 4 and no longer has any catatonic posturing. He reports that he feels well but tired. Patient had a prior history of alcohol abuse and was started on CIWA protocol. Alcohol levels were ordered Patient states that he follows up with his PCP who he last saw 2 months ago and psychiatrist David Lr in [place]. Previously he was on quetiapine 300 Mg p.o. at bedtime and sertraline 50 Mg p.o. daily. However patient stopped these medications on his own around August this year as he stated he no longer heard voices. Patient states that as of recent weeks he has begun to hear voices again. Will restart patient on small dose of quetiapine 25 Mg p.o. at bedtime and monitor overnight. Plan: ?CITN protocol ? Restarted patient on quetiapine 25 Mg p.o. at bedtime ? Serum alcohol levels ordered ? Will monitor patient overnight #SIRS?resolved Presentation to the ED, patient was noted to be tachycardic with heart rate in the 120s and EKG also showed sinus tachycardia. He also spiked a fever of 100.6 in the ED. Labs showed a WBC of 12.9 with normal lactate. However, he was negative for UTI chest x-ray is negative for pneumonia or inflammatory process. Currently patient HR 103 and WBC 9.3 Blood culture shows no bacterial growth x 24 hours preliminary #Hypomagnesemia?resolved On admission Mg 1.5, currently Mg 2 # Essential hypertension patient has a history of hypertension and per chart review is on lisinopril 40 mg daily. Blood pressure on admission in the 140s. Patient passed speech eval today and was placed on regular diet Plan: -IV hydralazine 10 mg IV Q6 hourly as needed for SBP> 160 #NIDDM type 2 The patient has a history of diabetes and per chart review is on metformin 750 mg daily. Last A1c done in 2021 was 6.1. HbA1c on this admission was 6.7% Plan: ?Insulin sliding scale Health maintenance: Disposition:Overnight monitoring for response to quetiapine. Will decide on medical discharge tomorrow Diet: Low Consistent Card Lines: pIVs GI Prophylaxis: None Thrombo Prophylaxis: None Code status: FULL CODE Plan of care discussed with Attending Dr. Lopez and PGY2 Dr. Anusha Keith MD PGY 1 Attending Provider Attestation/Addendum I have discussed and was present for the essential components of the history, physical examination, diagnosis, and treatment plan with the resident. I agree with the patient's care as documented by the resident and amended herein by me. Julius Lopez DO. Although this document has been carefully reviewed, there may still be some phonetic and other typographical errors. These errors are purely grammatical due to imperfections in the software program and should not be construed in any way to compromise the substance of the patient's medical care during this visit.
[2024-07-26] MEDS: FOLIC ACID 1 MG TABLET PO ×2 (08:53→20:38)
[2024-07-26] MEDS: ENOXAPARIN SOD INJ 40 MG/0.4 ML SYRINGE SC (08:54)
[2024-07-26] MEDS: POTASSIUM CHL 10 mEq IVPB 10 MEQ/100 ML BAG 100 MEQ IV ×4 (08:54→13:02)
[2024-07-26] MEDS: THIAMINE INJ 100 MG/ML VIAL 2 ML IM (09:56)
[2024-07-26 10:05] LABS: Alcohol, Blood Medical < 3.0 mg/dL (0-10.0)
--- NOTE | 2024-07-26 10:20 | PCS.ST ---
Swallow Evaluation completed. No dysphagia. Regular diet
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
[2024-07-26] MEDS: QUEtiapine FUMARATE 25 MG TABLET PO (20:38)
[2024-07-27] VITALS: BP 161/97; PULSE 100; PULSE 113; RESP 18; TEMP 36.2; O2SAT 98
[2024-07-27 04:00] VITALS: BP 139/77; PULSE 86; PULSE 90; RESP 19; TEMP 36.3; O2SAT 99
[2024-07-27 05:52] VITALS: BMI 43.6
[2024-07-27 06:22] LABS: Basophils # (Auto) 0.1 Thou/mm3 (0.0-0.2); Basophils % (Auto) 1 % (0-2.5); Eosinophils # (Auto) 0.3 Thou/mm3 (0.0-0.5); Eosinophils % (Auto) 4 % (0-10); Hematocrit 40.2 % (41.0-53.0); Hemoglobin 13.7 g/dL (13.5-16.0); Immature Granulocytes % (Auto) 0 % (0-0); Immature Granulocytes Auto 0.01 Thou/mm3 (0.00-0.00); Lymphocytes # (Auto) 1.7 Thou/mm3 (1.0-4.8); Lymphocytes % (Auto) 26 % (10-50); Mean Corpuscular HGB Conc 34.1 g/dl (31.0-37.0); Mean Corpuscular Hemoglobin 28.2 pg (25.0-35.0); Mean Corpuscular Volume 83 fL (80-100); Monocytes # (Auto) 0.8 Thou/mm3 (0.0-0.8); Monocytes % (Auto) 13 % (0-12); Neutrophils # (Auto) 3.8 Thou/mm3 (1.8-7.7); Neutrophils % (Auto) 56 % (37-80); Nucleated Red Blood Cell % 0 /100 WBC (0); Platelet Count 111 Thou/mm3 (140-440); RDW Standard Deviation 41.3 fL (35.1-43.9); Red Blood Count 4.86 Miln/mm3 (4.50-5.90); White Blood Count 6.7 Thou/mm3 (3.8-10.6)
[2024-07-27 06:50] LABS: Anion Gap 8 (7-16); BUN/Creatinine Ratio 18 Ratio (12-20); Blood Urea Nitrogen 11 mg/dL (9-23); Calcium 8.8 mg/dL (8.3-10.6); Carbon Dioxide 27.5 mMol/L (20.0-31.0); Chloride 103 mMol/L (98-107); Creatinine (Component) 0.6 mg/dL (0.6-1.3); Estimated Creatinine Clearance 192.7 mL/min (>60); Glucose 100 mg/dL (74-106); Magnesium 1.8 mg/dL (1.6-2.6); Osmolality,Calculated 275 (275-295); Phosphorous 3.9 mg/dL (2.4-5.1); Potassium 3.4 mMol/L (3.4-5.1); Sodium 138 mMol/L (136-145); eGFR > 60 See Note
[2024-07-27 07:49] VITALS: BP 131/92; PULSE 86; RESP 16; TEMP 36.3; O2SAT 99
[2024-07-27 08:00] VITALS: PULSE 100
[2024-07-27] MEDS: POTASSIUM CHLORIDE 20 mEq TABCR PO (09:42)
[2024-07-27] MEDS: ENOXAPARIN SOD INJ 40 MG/0.4 ML SYRINGE SC (09:42)
[2024-07-27] MEDS: FOLIC ACID 1 MG TABLET PO (09:42)
[2024-07-27] MEDS: QUEtiapine FUMARATE 25 MG TABLET PO (09:42)
--- NOTE | 2024-07-27 11:40 | ESDS_ITS ---
<Statement entered by Earle Tavares MD - 07/27/24 16:05> Patient was seen and examined at the bedside. Patient was medically stable to be discharged today. Patient medically was cleared today and crisis eval also cleared him. We are sending him on quetiapine 25 mg twice daily and he was advised to follow-up in our [facility] clinic or with PCP to get a referral for psychiatric evaluation for optimization of antipsychotic medications. All labs and orders were reviewed. I saw and examined the patient, and I agree with current management stated by Dr Jazmin MD,PGY1. Plan of care was discussed with the attending physician and resident physician. Disclaimer: Despite multiple revisions, due to the dictation software being used, the document bellow may not be free of grammatical errors including phonetic/typographic errors. However, this does not deter from our commitment to providing health care in the patient's best interest in mind. Dr. Anusha MD, PGY 2 Planned Discharge Date 07/27/24 DS: Providers Provider Date of admission: 07/25/24 20:57 Primary care physician: Physician Heidi Primary/Family Admitting Provider: Patrick Dale MD Attending Provider on Admission: Dariel Lopez DO Consults: 07/25/24 22:00 Referral Speech Therapy Routine Comment: Attending Provider on DC: Joel Keith MD Discharging Provider: Joel Keith MD DS: Diagnosis Problem List Completed Was Problem List Reviewed/Reconciled?: Yes Hospital Course Hospital Course Hospital course: Summary: The patient is a 38-year-old male with past medical history of alcohol use, hypertension, diabetes and reported bipolar disorder and schizophrenia who was [facility] to the ED on 08/04/2024. He has been admitted for observation of catatonia and SIRS. Patient was observed overnight after which his mentation improved to baseline and he was A and O x 4. Patient states that he follows up with his PCP who he last saw 2 months ago and psychiatrist David L[facility] in [place]. Previously he was on quetiapine 300 Mg p.o. at bedtime and sertraline 50 Mg p.o. daily. However patient stopped these medications on his own around August this year as he stated he no longer heard voices. Patient was started on quetiapine 25 Mg p.o. twice daily. His tachycardia also improved to HR 86 and no further temperature spikes with WBC downtrended to 6.7. SIRS was resolved. Patient's labs have now returned to baseline. Patient is now clinically stable and medically cleared for discharge back to home. Patient will be assessed by crisis team prior to being released. Discharge diagnoses: 1. Catatonia?resolved 2. Bipolar disorder 3. Schizophrenia 4. History of alcohol abuse 5. SIRS?resolved 6. Hypomagnesemia?resolved 7. Essential hypertension 8. NIDDM type II Discharge plan: ? You have been started on a medication Quetiapine for your schizophrenia and bipolar disorder. Please take 1 tablet 2 times a day. ? We have discontinued your gabapentin and sertraline until you see your doctor at the mental health clinic. ? Continue to take your metformin for your diabetes. 1 tablet once per day. ? Please follow-up with your primary care doctor within 1 week of discharge and also mental health clinic within 1 week of discharge. - If you experience any new, worsening or persistent symptoms call your primary doctor or dial 911 or present to the emergency department. We are grateful to be able to participate in Mr. England's care. We wish him the best. Plan of care discussed with Attending Dr. Lopez and PGY2 Dr. Anusha Keith MD PGY 1 Time Spent with Patient Time attestation: Total time spent providing and/or coordinating discharge services: Time spent: Greater than 30 minutes (35) Exam Vital Signs Temp Pulse Resp BP Pulse Ox O2 Del Method 97.3 F 86 16 131/92 H 99 Room Air 07/27/24 07:49 07/27/24 07:49 07/27/24 07:49 07/27/24 07:49 07/27/24 07:49 07/27/24 07:49 Narrative Exam Constitutional Alert, oriented x 3 and comfortable. Young male HEENT Vision grossly intact. Patent nares. Trachea midline Respiratory Chest normal on inspection and clear auscultation bilaterally Cardiovascular S1 and S2 audible, RRR. No murmurs carotid bruit. No gross JVD. Abdominal Soft and non tender to palpation in all quadrants. BS + Genitourinary No bladder tenderness, no flank pain. Normal to palpation Musculoskeletal Extremities tone within normal limits. No LE edema. Neurological CN II - XII grossly intact. Extremity motor and sensation grossly intact. Skin Warm, dry and intact. No apparent lesions. Psychiatric Patient has good affect, is cooperative Discharge Plan Plan Patient Disposition: HOME (Self Care) Care Plan Goals: ? You have been started on a medication Quetiapine for your schizophrenia and bipolar disorder. Please take 1 tablet 2 times a day. ? We have discontinued your gabapentin and sertraline until you see your doctor at the mental health clinic. ? Continue to take your metformin for your diabetes. 1 tablet once per day. ? Please follow-up with your primary care doctor within 1 week of discharge and also mental health clinic within 1 week of discharge. - If you experience any new, worsening or persistent symptoms call your primary doctor or dial 911 or present to the emergency department. Prescriptions/Referrals Prescriptions/Med Rec: New quetiapine 25 mg Tablet 25 mg PO BID 30 Days Qty: 60 0RF Continued metformin 750 mg tablet extended release 24 hr 750 mg PO QDAY 30 Days Qty: 0 0RF Patient Comments: TAKE 1 TABLET BY MOUTH EVERY DAY WITH FOOD Discontinued gabapentin 400 mg capsule 400 mg PO TID sertraline [Zoloft] 50 mg Tablet 50 mg PO QDAY quetiapine 300 mg tablet 300 mg PO HS Patient Comments: TAKE 1 TABLET BY MOUTH EVERY DAY AT BEDTIME FOR 30 DAYS bacitracin [Bacitraycin Plus] 500 unit/gram ointment 1 applic topical Q8H Qty: 30 0RF Rx Instructions: Apply to affected area as directed. Referrals: No Primary/Family,Physician [Primary Care Provider] - Patient/Caregiver Discharge Instructions Print Language: Lithuanian Stand Alone Forms: Edwina Award Info., Patient Portal Info Letter, Work/Release Restrictions Discharge Order Discharge Orders: Discharge (Routine); Ordered 07/27/24 Ordered By: Rosita Devine Quality Discharge Quality Measures VTE prophylaxis Attestestation MD Attestation I have discussed and was present for the essential components of the discharge history, physical examination, diagnosis, and discharge treatment plan with the resident. I agree with the patient's discharge care as documented by the resident and amended herein by me. Julius Lopez DO. The patient understood all discharge instructions, all questions were answered satisfactorily. The patient was instructed to return to the Emergency Department is symptoms worsened or persisted. Although this document has been carefully reviewed, there may still be some phonetic and other typographical errors. These errors are purely grammatical due to imperfections in the software program and should not be construed in any way to compromise the substance of the patient's medical care during this visit.
[2024-07-27 12:00] VITALS: BP 131/92; PULSE 95; PULSE 99; RESP 16; TEMP 36.3; O2SAT 96
--- NOTE | 2024-07-27 12:38 | PC.SS ---
Mack met with patient [id number] to discuss mental health evaluation. COAT BASTER introduced self, role and reason for visit. Patient appeared clean and well groomed. Patient appeared alert and oriented to self, place and situation. Patient was pleasant, his mood and behavior were ordinary. Patient's thought process was logical and ordinary. Patient reported that this morning, he had more clarity about coming to the ED. Patient reported that he was walking for many hours [facility] At the time, he was pacing outside the grocery store with his pants down. Patient reported that he remembers the police talking to him, but being unable to answer. Patient reported that he was suffering from A/h and paranoid delusions. Patient reported that he had also been drinking for the last 3-days; he reported drinking about 10-beers per day. Patient reported that today, he is not suffering from A/h, V/h, SI, or HI. Patient reported that he understands, he needs to take his psychotropic medication as prescribed and continue to follow up with behavioral health services. Patient declined to attend [facility]. Patient was in agreement to safety plan with his father, Markus Rahman ([phone]). SW contacted Markus who reported that he can maintain patient safe and ensure that he takes his medication and follows-up with behavioral health services. TRAN made appointments for [facility] with Dr. Naranjo on 07/29/2024 at 1345, as well as, 08/17/2024 at 1000 with Heriberto Osorio. TRAN provided information to patient and father, Markus. TRAN utilized teach back method to ensure that patient was understanding discharge plan. TRAN also provided information for AA meetings and Community Resources for [facility]. TRAN instructed Markus that if patient becomes suicidal, homicidal, or starts hallucinating to bring him to the ED for a MHE, call crisis, or . TRAN updated GME Resident Dr. Ortega.
--- NOTE | 2024-07-27 13:40 | CHAP ---
09:30 AM Visited by spiritual care volunteer Provided prayer for Patient.
[2024-07-27 14:00] VITALS: BP 144/110; PULSE 108; RESP 18; TEMP 36.2; O2SAT 98
--- NOTE | 2024-07-27 14:42 | PC.NURSE ---
Discharge instructions given to the patient and verbalized understanding. Discharged patient via w/c with all belongings and little from the safe; patient's father at side.
== END 2024-07-27 14:42 | disposition home or self-care (01) ==
LOC: SERX 18:26 → SERHOLD 07-26 05:43 → S2NX 07-26 05:43
PROVIDERS: Emergency Medicine; Admitting Provider Internal Medicine; Emergency Provider Emergency Medicine; Visit Provider Student in an Organized Health Care Education/Training Program
DX: F20.2 Catatonic schizophrenia (principal); I10 Essential (primary) hypertension; F31.9 Bipolar disorder, unspecified; F20.9 Schizophrenia, unspecified; F10.10 Alcohol abuse, uncomplicated; E83.42 Hypomagnesemia; E78.00 Pure hypercholesterolemia, unspecified; E66.9 Obesity, unspecified; E11.9 Type 2 diabetes mellitus without complications; R65.10 Systemic inflammatory response syndrome (SIRS) of non-infectious origin without acute organ dysfunction; Z68.41 Body mass index [BMI] 40.0-44.9, adult; Z91.148 Patient's other noncompliance with medication regimen for other reason
CPT/HCPCS: 51701; 36415; 70450; 71045; 80048; 80307; 80320; 80329; 81001; 82550; 83036; 83605; 83615; 83690; 83735; 83880; 84100; 84145; 84484; 85025; 85610; 85730; 87040; 87077; 87086; 87186; 87811; 92610; 93005; 96127; 96361; 96365; 96366; 96372; 96375; 99291; 99292; G0378; J1650; J2060; J3360; J3411; J3475; J3480; J7030; A9270; G0480